=== PATIENT | male | born 1980 | race African-American/Black ===

== ENCOUNTER 2023-10-18 00:27 | Emergency (ER) | payer SELFPAY ==
[~2023-10-18] VITALS: Ht 190.5 cm; Wt 77.0 kg
[2023-10-18 00:41] VITALS: BP 104/69; RESP 18; TEMP 97.8; O2SAT 98
[2023-10-18 00:44] VITALS: PULSE 83
[2023-10-18] MEDS ORDERED: KETOROLAC 15MG/ML VIAL IM ONE (02:15)
[2023-10-18] MEDS ORDERED: KETOROLAC 15MG/ML VIAL IM NR (02:30)
== END 2023-10-18 05:02 | disposition left against medical advice (07) ==
LOC: ER 00:27
DX: M54.9 Dorsalgia, unspecified (principal); Z53.21 Procedure and treatment not carried out due to patient leaving prior to being seen by health care provider
CPT/HCPCS: Z7610 ×3